=== PATIENT | female | born 1990 | race Caucasian/White ===

== ENCOUNTER 2016-03-29 20:10 | Emergency (ER) | payer BC, OTHER ==
--- NOTE | 2016-03-29 20:16 | EDPHY ---
H & P Time Seen by Provider: 03/29/16 20:16 - Medical/Surgical History Hx Asthma: No Hx Chronic Respiratory Disease: No Hx Diabetes: No Hx Cardiac Disease: No Hx Renal Disease: No Hx Cirrhosis: No Hx Alcoholism: No Hx HIV/AIDS: No Hx Splenectomy or Spleen Trauma: No Other PMH: migraines - Social History Smoking Status: Never smoked Constitutional: Initial Vital Signs Temperature (C) 36.7 C 03/29/16 20:27 Heart Rate 97 03/29/16 20:27 Respiratory Rate 16 03/29/16 20:27 Blood Pressure 143/95 H 03/29/16 20:27 O2 Sat (%) 95 03/29/16 20:27 O2 Delivery Mode Room Air Allergies/Adverse Reactions: No Known Allergies Allergy (Unverified 02/25/14 15:03) Home Medications: Medication Instructions Recorded Control 11/14/14 Medical Decision Making ED Course/Re-evaluation: CHIEF COMPLAINT: Migraine HISTORY OF PRESENT ILLNESS: The patient is a 25 y/o female complaining of a migraine for the last 4 days with lightheadedness for the last day. She has a history of migraines and uses Excedrin to control her symptoms. Yesterday she became lightheaded at work and started vomiting violently. Her emesis started to look dark and like coffee grounds so she went to urgent care yesterday and received Toradol and Phenergan IM. Her lightheadedness has continued today and is associated with abdominal pain. She reports she has been using recommended doses of Excedrin. She denies other pertinent medical history. REVIEW OF SYSTEMS: A 10 point review of systems was performed and is negative with the exception of the elements mentioned in the history of present illness. PHYSICAL EXAM: HR, BP, O2 Sat, RR. Temp noted General Appearance: Alert, well hydrated, appropriate, and non-toxic appearing. Head: Atraumatic without scalp tenderness or obvious injury Eyes: Pupils equal, round, reactive to light and accommodation, EOMI, no trauma , no injection. Ears: Clear bilaterally, no perforation, normal landmarks Nose: Atraumatic, no rhinorrhea, clear. Throat: There is no erythema or exudates, no lesions, normal tonsils, mucus membranes moist. Neck: Supple, 2+ carotid upstroke, nontender, no lymphadenopathy. Respiratory: No retractions, no distress, no wheezes, and no accessory muscle use. Lungs are clear to auscultation bilaterally. Cardiovascular: Regular rate and rhythm, no murmurs, rubs, or gallops. Bilateral carotid, radial, dorsalis pedis, and posterior tibial pulses intact. Good capillary refill all extremities. Gastrointestinal: Abdomen is soft, nontender, non-distended, no masses, no rebound, no guarding, no peritoneal signs. Musculoskeletal: Normal active ROM of all extremities, atraumatic. Neurological: Alert, appropriate, and interactive. The patient has normal DTRs and non-focal cranial nerves, motor, sensory, and cerebellar exam. Skin: No rashes, good turgor, no nodules on palpation. Past medical history: Migraines Past surgical history: Denies Family history: Noncontributory Social history: Friend at bedside DIFFERENTIAL DIAGNOSIS: The differential diagnosis for the patient's headache included but was not limited to migraine headache with gastritis, subarachnoid hemorrhage, tension headache and infectious causes such as meningitis, pharyngitis and sinusitis. MEDICAL DECISION MAKING: This is a healthy 25 y/o female with a history of migraines presenting with a 4- day history of migraine with coffee ground emesis and lightheadedness onset yesterday. She reports using Excedrin for her migraine symptoms but not "overdoing it." She received IM injections of Phenergan and Toradol last night with some improvement in her headache. Plan for migraine cocktail and ISTAT to check blood counts. 10mg IV Decadron, 12.5mg IV Phenergan, 30mg IV Toradol, and 40mg IV Pepcid administered. Reassessed patient. Symptoms have improved. Patient will be discharged with recommendation to follow up with her PCP for symptoms not improved on Thursday. Return precautions given. She is comfortable with this plan. - Data Points Laboratory Results: 03/29/16 20:35 POC Hgb 13.6 gm/dL (12.3-15.9) POC Hct 40 % (35.5-47.5) POC Sodium 141 mEq/L (134-144) POC Potassium 3.7 mEq/L (3.3-5.0) POC Chloride 104 mEq/L (96-108) POC BUN 20 mg/dL (7-23) POC Creatinine 0.8 mg/dL (0.6-1.2) POC Glucose 85 mg/dL (70-100) Medications Given: Discontinued Medications Dexamethasone (Decadron Injection) 10 mg IVP EDNOW ONE Stop: 03/29/16 20:24 Last Admin: 03/29/16 20:35 Dose: 10 mg Famotidine (Pepcid) 40 mg IVP EDNOW ONE Stop: 03/29/16 20:24 Last Admin: 03/29/16 20:35 Dose: 40 mg Sodium Chloride (Ns) 1,000 mls @ 0 mls/hr IV ONCE ONE PRN Reason: Wide Open Stop: 03/29/16 20:36 Last Admin: 03/29/16 20:35 Dose: 1,000 mls Ketorolac Tromethamine (Toradol) 30 mg IVP EDNOW ONE Stop: 03/29/16 20:24 Last Admin: 03/29/16 20:35 Dose: 30 mg Metoclopramide HCl (Reglan Injection) 10 mg IVP EDNOW ONE Stop: 03/29/16 20:24 Last Admin: 03/29/16 20:35 Dose: 10 mg Point of Care Test Results: 03/29/16 20:35 POC Sodium 141 POC Potassium 3.7 POC Chloride 104 POC BUN 20 POC Creatinine 0.8 POC Glucose 85 Departure - Departure Disposition: Home, Routine, Self-Care Clinical Impression: Migraine Qualifiers: Qualifier Code: (G43.D0) Abdominal migraine, not intractable Gastritis Qualifiers: Qualifier Code: (K29.01) Acute gastritis with bleeding Instructions: Migraine Headache (ED), Gastritis (ED) Additional Instructions: Follow up with your migraine doctor for symptoms not improved by Thursday. Referrals: Dennise Santiago MD [Medical Doctor] - As per Instructions Report Scribed for: Jhonatan Pelayo Report Scribed by: Aletha Mcdowell Date of Report: 03/29/16 Time of Report: 20:25
[2016-03-29] MEDS ORDERED: DEXAMETHASONE 10 MG/ML VIAL IVP ONE (20:23)
[2016-03-29] MEDS ORDERED: METOCLOPRAMIDE 10 MG/2 ML VIAL IVP ONE (20:23)
[2016-03-29] MEDS ORDERED: FAMOTIDINE 20 MG/2 ML SDV IVP ONE (20:23)
[2016-03-29] MEDS ORDERED: KETOROLAC 30 MG/1 ML SDV IVP ONE (20:23)
[2016-03-29 20:29] VITALS: TEMP 98.1
[2016-03-29] MEDS ORDERED: NS 1,000 ML IV ONE (20:35)
[2016-03-29 21:37] VITALS: BP 127/75; PULSE 87; RESP 18; O2SAT 96
== END 2016-03-29 21:36 | disposition home or self-care (01) ==
DX: G43.D0 Abdominal migraine, not intractable (principal); K29.01 Acute gastritis with bleeding
CPT/HCPCS: 82947-QW; 96374; J1885; J2765

== ENCOUNTER 2016-06-03 17:33 | Emergency (ER) | payer BC, OTHER ==
[2016-06-03 18:01] VITALS: O2SAT 97
--- NOTE | 2016-06-03 20:33 | EDPHY ---
General - History Smoking Status: Never smoked Narrative: CHIEF COMPLAINT: Possible foreign body in nose HISTORY OF PRESENT ILLNESS: patient reports feeling something crawling to the left side of her nose 2 nights ago. Since then she has felt there is the foreign body sensation in the nose. She has had some discomfort and when she blows her nose that she feels pressure. No bleeding. No purulence. Some generalized nasal and sinus discomfort. No fever or chills. No headache. No dizziness. She thinks that she feels that moving. She was seen at urgent care earlier today. They performed a speculum exam and sent her to our facility. No other associated complaints or modifying factors. REVIEW OF SYSTEMS: Ten systems reviewed and are negative unless otherwise noted in the HPI EXAMINATION General Appearance: Alert, no distress ENT: Right nasal passage is clear. The left nasal passage has mild edema. No erythema. No obvious foreign body with speculum exam. No sinus tenderness at any location. Cardiovascular: Pulses normal throughout. Brisk cap refill Neurological: A&O, sensory symmetric, strength symmetric Skin: Warm and dry, no rash Extremities: Nontender, no pedal edema Psychiatric: Mood and affect normal DIFFERENTIAL DIAGNOSES: Including but not limited to Nasal foreign body, nasal mucosa irritation, nasal edema, sinusitis MDM: 8:30 p.m. patient has sensation of foreign body in the nose. I did use a disposable, hand-held bronchoscopy. I did not visualize anything in the nasal cavities or passages. I was able to visualize all the way to the trachea and esophagus without any foreign body noted. We did not attempt to visualize the maxillary sinuses. There was some erythema and edema on the left nasal passage. The turbinates were intact. No purulence. I discussed the case with the on-call ENT physician Dr. Brown. She will see the patient outpatient in her office. I will discharge her home with Afrin and oral antibiotics for prophylaxis. I would like to contact the Ear Nose and Throat physician in the morning for further care. I did offer CT scan of the sinuses here, but the patient prefers to have this done outpatient. I do agree with this, as I do not feel that this is an emergent scenario. PROCEDURE: nasal endoscopy indication: Possible foreign body consent: Verbal description: after anesthetizing the left side of the nasal passage with 1% lidocaine plain 5 mL, I used the hand-held, disposed bronchoscopy to visualize the passage. This was done with suction. There was no irrigation performed. We visualized all the way to the epiglottis and esophagus without any evidence of foreign body. There was some mild edema noted. No erythema or purulence. Patient tolerated the procedure well without complication ED Precautions: Worsening pain. Erythema, edema, cyanosis, pallor, paresthesia or anesthesia. SUPERVISION: This patient was independently evaluated without the aide of supervising physician. Case discussed with Dr. Brown by telephone (Kevin Santillan) Medical Decision Making: I did not see this patient while she was in the emergency department. However her care was discussed with the PA while the patient was in the department. I agree with treatment plan and management (Baljit Stone) - Objective Vital Signs: Initial Vital Signs Temperature (C) 36.6 C 06/03/16 17:58 Heart Rate 76 06/03/16 17:58 Respiratory Rate 16 06/03/16 17:58 Blood Pressure 125/76 H 06/03/16 17:58 O2 Sat (%) 97 06/03/16 17:58 O2 Delivery Mode Room Air Allergies/Adverse Reactions: No Known Allergies Allergy (Verified 06/03/16 17:58) Home Medications: Medication Instructions Recorded Amoxicillin/Clavulanate Pot 875 mg PO BID #20 tab 06/03/16 [Augmentin 875 MG TAB (*)] Oxymetazoline HCl [Afrin Nasal 1 spray [place] BID #1 bottle 06/03/16 [place] (OTC)] Sprintec 28 Day Tablet 06/03/16 Medications Given: Discontinued Medications Amoxicillin/Clavulanate Potassium (Augmentin 875mg) 875 mg PO EDNOW ONE PRN Reason: Protocol Stop: 06/03/16 20:45 Last Admin: 06/03/16 20:52 Dose: 875 mg Departure - Departure Disposition: Home, Routine, Self-Care Clinical Impression: Nasal discomfort, Foreign body in nose Condition: Good Instructions: Oxymetazoline (Into the nose) Additional Instructions: contact Ear Nose and Throat physician in the morning for follow-up. Return to the ER for worsening pain, sinus pain, fever Referrals: SAMMIE ALANIZ [Other] - As per Instructions Gisela Brown MD [Medical Doctor] - As per Instructions Prescriptions: Amoxicillin/Clavulanate Pot [Augmentin 875 MG TAB (*)] 875 mg PO BID #20 tab Oxymetazoline HCl [Afrin Nasal [place] (OTC)] 1 spray EACHNARE BID #1 bottle
[2016-06-03] MEDS ORDERED: AMOXICILLIN/CLAVULANATE POT 875/125 MG TAB PO ONE (20:44)
[2016-06-03 20:53] VITALS: BP 121/79; PULSE 67; RESP 18; TEMP 98.1
== END 2016-06-03 20:52 | disposition home or self-care (01) ==
DX: T17.1XXA Foreign body in nostril, initial encounter (principal); X58.XXXA Exposure to other specified factors, initial encounter